=== PATIENT | male | born 1970 | race Caucasian/White ===

== ENCOUNTER → 2017-05-27 | Emergency (ER) | payer OTHER ==
[~2017-05-27] MED LIST: BACITRACIN 15 GM TUBE TOPICAL OINTMENT ONE; IBUPROFEN 400 MG TABLET (FP) PO ONE; IBUPROFEN 400 MG TABLET (FP) PO PRN
[2017-05-27 21:14] VITALS: BP 142/96; PULSE 102; TEMP 98.2; BMI 33.3
--- NOTE | 2017-05-27 21:24 | PDOC ---
History of Present Illness - General Chief Complaint: Pain Stated Complaint: INJURY Time Seen by Provider: 05/27/17 21:19 History Source: Patient Exam Limitations: No Limitations - History of Present Illness Initial Comments: 05/27/17 21:20 46-year-old male without any medical history presents to the emergency department complaining of pain to the left knee. Pain is described as 4/10 dull nonradiating intermittent discomfort. The pain is exacerbated minimally with weight-bear but alleviated at rest. Patient is a [employer] who was running up hill after an alleged suspect when he twisted his knee. Patient denies any extremity numbness or tingling sensation. Patient denies any other injuries or complaints. Occurred: reports: just prior to arrival Lower Extremity Pain Location: left: knee Past History - Past Medical History Allergies/Adverse Reactions: Allergies Allergy/AdvReac Type Severity Reaction Status Date / Time No Known Allergies Allergy Verified 05/27/17 21:09 Asthma: Yes - Psycho/Social/Smoking Cessation Hx Suicidal Ideation: No Smoking History: Never smoked Information on smoking cessation initiated: No Hx Alcohol Use: No Drug/Substance Use Hx: No Substance Use Type: None Review of Systems - Review of Systems Able to Perform ROS?: Yes Comments:: 05/27/17 21:22 All other ROS reviewed and are negative MUSCULOSKELETAL: Absent: myalgia, arthralgia, joint swelling SKIN: Absent: rash, itching, pallor Left knee F.R.O.M. Slight pain on ant palp Neg pain on midline tendon l=palp Neg ant/posterior drawer Neg valgus/varus Left ankle F,R,o.m. 2+ DP pulse Left hip F.R.O.M. neg pain palp Is the patient limited Danish proficient: No *Physical Exam - Vital Signs Last Vital Signs Temp Pulse Resp BP Pulse Ox 98.2 F 102 H 20 142/96 96 05/27/17 21:11 05/27/17 21:11 05/27/17 21:11 05/27/17 21:11 05/27/17 21:11 - Physical Exam Comments: 05/27/17 21:22 GENERAL: Well developed, well nourished. Awake and alert. No acute distress. HEENT: Normocephalic, atraumatic. PERRLA, EOMI. No conjunctival pallor. Sclera are non- icteric. Moist mucous membranes. Oropharynx is clear. NECK: Supple. Full ROM. No JVD. Carotid pulses 2+ and symmetric, without bruits. No thyromegaly. No lymphadenopathy. CARDIOVASCULAR: Regular rate and rhythm. No murmurs, rubs, or gallops. Distal pulses are 2+ and symmetric. PULMONARY: No evidence of respiratory distress. Lungs clear to auscultation bilaterally. No wheezing, rales or rhonchi. ABDOMINAL: Soft. Non-tender. Non-distended. No rebound or guarding. No organomegaly. Normoactive bowel sounds. MUSCULOSKELETAL Normal range of motion at all joints. No bony deformities or tenderness. No CVA tenderness. EXTREMITIES: No cyanosis. No clubbing. No edema. No calf tenderness. SKIN: Warm and dry. Normal capillary refill. No rashes. No jaundice. NEUROLOGICAL: Alert, awake, appropriate. Cranial nerves 2-12 intact. No deficits to light touch and temperature in face, upper extremities and lower extremities. No motor deficits in the in face, upper extremities and lower extremities. Normoreflexic in the upper and lower extremities. Normal speech. Toes are down- going bilaterally. Gait is normal without ataxia. PSYCHIATRIC: Cooperative. Good eye contact. Appropriate mood and affect. ED Treatment Course - RADIOLOGY Radiology Studies Ordered: Category Date Time Status KNEE 2 POS-LEFT [RAD] Stat Radiology 05/27/17 21:06 Ordered Radiograph Interpretation: 05/27/17 21:23 Xray left knee Neg fx/dislocations *DC/Admit/Observation/Transfer Diagnosis at time of Disposition: Left knee sprain Qualifiers: Encounter type: initial encounter Involved ligament of knee: other ligament Qualified Code(s): S83.8X2A - Sprain of other specified parts of left knee, initial encounter - Discharge Dispostion Disposition: HOME Condition at time of disposition: Stable Admit: No - Referrals Referrals: Chris Palacios MD [Staff Physician] - - Patient Instructions Printed Discharge Instructions: DI for Knee Sprain Additional Instructions: Ice; 20 mins on alternating with 20 mins off for 48 hours while awake. Rest Elevate Follow up with your orthopedic surgeon or the one listed on the discharge form. Return to the ER for severe/persistent/worsening symptoms, extremity numbness/ tingling sensation.
== END | disposition home or self-care (01) ==
LOC: JER 20:53
DX: S83.8X2A Sprain of other specified parts of left knee, initial encounter (principal); X58.XXXA Exposure to other specified factors, initial encounter; Y93.9 Activity, unspecified; Y92.9 Unspecified place or not applicable; J45.909 Unspecified asthma, uncomplicated
CPT/HCPCS: 73560-TC-LT; 99282-25

== ENCOUNTER 2019-06-23 20:30 | Emergency (ER) | payer BC, OTHER ==
[2019-06-23 20:42] VITALS: BP 156/103; PULSE 86; TEMP 98.6; BMI 32.1
[2019-06-23] MEDS ORDERED: SILVER SULFADIAZINE 1% TOP CREAM 50 GM JAR TP ONE (20:59)
--- NOTE | 2019-06-23 23:55 | PDOC ---
Documentation entered by Ana Meneses SCRIBE, acting as scribe for Myra Acosta MD. Myra Acosta MD: This documentation has been prepared by the gloriaibeGideon Natalie, SCRIBE, under my direction and personally reviewed by me in its entirety. I confirm that the documentation accurately reflects all work, treatment, procedures, and medical decision making performed by me. History of Present Illness - General Chief Complaint: Burn Stated Complaint: BURN TO BACK WITH UNI GEL Time Seen by Provider: 06/23/19 20:34 History Source: Patient Exam Limitations: No Limitations - History of Present Illness Initial Comments: 06/23/19 21:04 The patient is a 48-year-old male, with a past medical history of asthma, who presents to the ED with a burn on his LT upper back after applying a cold gel pack for back pain. The patient states that he has been experiencing back pain for the past few days and went to a chiropractor who gave him the gel packs. He has been using the gel packs for a few days now, but when he applied one today he left it on for 25 minutes as opposed to 10 minutes. He noted redness and blisters to the area around 2 PM today. He took antiinflammatory medication which helped to bring the swelling down. The patient denies having any other injuries or symptoms. Allergies: NKA Past History - Past Medical History Allergies/Adverse Reactions: Allergies Allergy/AdvReac Type Severity Reaction Status Date / Time No Known Allergies Allergy Verified 06/23/19 20:36 Home Medications: Ambulatory Orders Nabumetone [Relafen -] 500 mg PO BID 06/23/19 Asthma: Yes - Suicide/Smoking/Psychosocial Hx Smoking History: Never smoked Hx Alcohol Use: No Drug/Substance Use Hx: No Substance Use Type: None Review of Systems - Review of Systems Able to Perform ROS?: Yes Comments:: 06/23/19 21:05 GENERAL/CONSTITUTIONAL: No fever or chills. No weakness. HEAD, EYES, EARS, NOSE AND THROAT: No change in vision. No ear pain or discharge. No sore throat. CARDIOVASCULAR: No chest pain or shortness of breath. RESPIRATORY: No cough, wheezing, or hemoptysis. GASTROINTESTINAL: No nausea, vomiting, diarrhea or constipation. GENITOURINARY: No dysuria, frequency, or change in urination. MUSCULOSKELETAL: No joint or muscle swelling or pain. No neck or back pain. SKIN: (+)Burn to LT upper back. NEUROLOGIC: No headache, vertigo, loss of consciousness, or change in strength/ sensation. ENDOCRINE: No increased thirst. No abnormal weight change. HEMATOLOGIC/LYMPHATIC: No anemia, easy bleeding, or history of blood clots. ALLERGIC/IMMUNOLOGIC: No hives or skin allergy. *Physical Exam - Vital Signs Last Vital Signs Temp Pulse Resp BP Pulse Ox 98.6 F 86 16 156/103 H 98 06/23/19 20:38 06/23/19 20:38 06/23/19 20:38 06/23/19 20:38 06/23/19 20:38 - Physical Exam Comments: 06/23/19 21:05 GENERAL: Awake, alert, and fully oriented, in no acute distress HEAD: No signs of trauma EYES: PERRLA, EOMI, sclera anicteric, conjunctiva clear ENT: Auricles normal inspection, hearing grossly normal, nares patent, oropharynx clear without exudates. Moist mucosa NECK: Normal ROM, supple, no lymphadenopathy, JVD, or masses LUNGS: Breath sounds equal, clear to auscultation bilaterally. No wheezes, and no crackles HEART: Regular rate and rhythm, normal S1 and S2, no murmurs, rubs or gallops ABDOMEN: Soft, nontender, normoactive bowel sounds. No guarding, no rebound. No masses BACK: (+)12cm x 4cm erythematous, slightly edematous, minimally tender area of the LT upper back with 2 circular areas of vesicles measuring 2.5cm diameter. One circular area is the upper portion of the wound and the other is in the lower portion of the wound. EXTREMITIES: Normal range of motion, no edema. No clubbing or cyanosis. No cords, erythema, or tenderness NEUROLOGICAL: Cranial nerves II through XII grossly intact. Normal speech, normal gait SKIN: Warm, Dry, normal turgor. Medical Decision Making - Medical Decision Making As noted above, this 48-year-old man presents with mildly painful, erythematous area on the left upper back. Within the erythematous area there are 2 small areas of blistering. He sustained this after he placed a cold pack against the area a few hours prior to presentation; he describes pressing his back firmly against a cold pack for a period of time which was longer than previously. There was no rupture of the gel pack or other exposure to chemicals or heat. No previous history of enhanced skin reaction to cold. Exam as noted: Majority of area is first-degree burn with small areas of second-degree burn within the superficial burn. Using sterile technique, Silvadene cream was placed on the second-degree burn areas and covered with sterile Telfa pad. Paper tape used for securing the pad. Patient recommended to continue Silvadene/sterile bandage dressing 1-2 times a day for the next 5 days. Silvadene cream should be washed off between dressing changes; gentle flow from shower can be used. If there is increasing pain/ swelling/redness or drainage becomes purulent. Patient can return to the ER . Also, 2 referrals for wound care given: Wound care clinic at [facility] ( Dr.Nirav Louie) or Dr Romario Dior(plastic surgery). Either can also be seen in follow-up for burn wound care *DC/Admit/Observation/Transfer Diagnosis at time of Disposition: Burn of upper back Qualifiers: Encounter type: initial encounter Burn degree: superficial (1st degree) Qualified Code(s): T21.13XA - Burn of first degree of upper back, initial encounter - Discharge Dispostion Disposition: HOME Condition at time of disposition: Stable - Referrals Referrals: John Louie DO [Staff Physician] - Romario Dior MD [Staff Physician] - - Patient Instructions Printed Discharge Instructions: DI for [place] Additional Instructions: Silvadene/bandage 1-2 times a day for the next 5-7 days Can use nonsteroidal anti-inflammatory medications as needed for pain Follow-up for wound care either with Dr. Louie (wound care clinic at [facility] ) or Dr. Dior (private plastic surgeon) Return to ER or see above doctors if wound become larger/ more painful/more blistered or you develop fever - Post Discharge Activity
== END 2019-06-23 21:16 | disposition home or self-care (01) ==
LOC: FER 20:30
DX: T21.13XA Burn of first degree of upper back, initial encounter (principal); X08.8XXA Exposure to other specified smoke, fire and flames, initial encounter; Y93.89 Activity, other specified; Y92.89 Other specified places as the place of occurrence of the external cause; J45.909 Unspecified asthma, uncomplicated
CPT/HCPCS: 99281-25